=== PATIENT | female | born 1990 | race Caucasian/White ===

== ENCOUNTER 2022-04-30 07:49 | Emergency (ER) | payer BC ==
[2022-04-30] MEDS ORDERED: Lidocaine 1% (PF) 30 ML VIAL ONE (08:07)
== END 2022-04-30 08:34 | disposition home or self-care (01) ==
LOC: CSHERS 07:49
DX: T16.1XXA Foreign body in right ear, initial encounter (principal)
CPT/HCPCS: 69200; J2001